=== PATIENT | male | born 1935 | race Caucasian/White ===

== ENCOUNTER 2016-12-23 15:50 | Inpatient (IN) ==
--- NOTE | 2016-12-23 16:23 | PROVIDER DOCUMENTATION ---
HPI-General Adult - General Chief Complaint: General Adult Stated Complaint: BLOOD CLOT Time Seen by Provider: 12/23/16 16:20 Source: patient Allergies/Adverse Reactions: Patient Allergies Allergy/AdvReac Type Severity Reaction Status Date / Time meperidine HCl * Allergy Severe Unknown Verified 12/23/16 16:15 [From Demerol] Sulfa (Sulfonamide Allergy Severe HEADACHE Verified 12/23/16 16:15 Antibiotics) venom-honey bee Allergy Severe SWELLING Verified 12/23/16 16:15 [bee venom (honey bee)] Home Medications: Home Medication List Medication Instructions Recorded Confirmed Last Taken Type Acetaminophen/Dp-Hydramine 2 each PO HS 06/07/12 12/24/16 06/10/12 21:00 History [Excedrin Pm 500-38 mg Caplet] Glipizide 5 mg PO DAILY 06/07/12 12/24/16 06/10/12 08:00 History Losartan/Hydrochlorothiazide 1 each PO DAILY 06/07/12 12/24/16 06/11/12 07:00 History [Losartan-Hctz 100-25 mg Tab] Psyllium Seed/Aspartame [Metamucil 1 tsp PO DAILY 06/07/12 12/23/16 12/22/16 History Powder] Amlodipine Besylate 10 mg PO DAILY 12/24/16 12/24/16 Unknown History Doxycycline Hyclate 100 mg PO BID 12/24/16 12/24/16 Unknown History Rivaroxaban [Xarelto] 20 mg PO WSUPPER #90 tablet 12/25/16 Unknown Rx - History of Present Illness -Gen Adult Nature of Presenting Problems: patient is a 81 yo M that presents to the ER for evaluation for possible PE. patient just had u/s done of right leg and found to have extensive DVT. sent him for PE study then admission. Patient was on recent long trip. He started to have shortness of breath and leg cramping. Seen [facility] at PCP office, he then was treated for possible URI, which given antibiotics and steroids that improved the shortness of breath some. Location of Pain/Injury: reports: lower extremity (right) Pain Radiation: reports: no radiation Quality of Pain: reports: dull Severity: reports: moderate Onset/Duration: reports: gradual, 3 days ago, 4 days ago Timing: reports: still present, constant Context/Activities at Onset: reports: other (long travel) Modifying Factors: improves with: nothing Associated Symptoms: reports: shortness of breath. denies: back/neck pain, chest pain, fever/chills, genitourinary problems, sinus congestion/drainage, nausea, vomiting Similar Symptoms Previously?: Yes Recently seen or treated by another doctor?: Yes Review of Systems - Adult - REVIEW OF SYSTEMS - ADULT Constitutional: denies: chills, fever Eyes: reports: no symptoms reported Ears, Nose, Mouth & Throat: denies: ear pain, sinus problem, throat pain, throat swelling Cardiovascular: denies: chest pain, palpitations Respiratory: reports: cough, shortness of breath Gastrointestinal: reports: no symptoms reported Genitourinary: reports: no symptoms reported Musculoskeletal: reports: bone pain. denies: joint pain Integumentary: reports: no symptoms reported Neurological: reports: no symptoms reported Psychiatric: reports: no symptoms reported Endocrine: reports: no symptoms reported Hematologic/Lymphatic: reports: no symptoms reported Allergic/Immunologic: reports: no symptoms reported All Other Systems: Reviewed and Negative Past History - Adult - PAST MEDICAL HISTORY-ADULT Review of Records: reports: Old Records Reviewed, Nursing Assessment Review, Medications Reviewed Cardiovascular: reports: HTN Gastrointestinal: reports: GERD Genitourinary: reports: cancer (bladder), other - PRIOR SURGERIES/PROCEDURES Surgical/Procedure History: reports: reviewed, not pertinent - IMMUNIZATION STATUS Childhood Immunizations: See Nurse Assessment Flu Vaccine: See Nurse Assessment - FAMILY HISTORY Family History: reviewed, not pertinent - SOCIAL HISTORY Smoking: non-smoker Alcohol Use Frequency: occasionally Living Situation: family Physical Exam-General - PHYSICAL EXAM-ADULT Initial Vital Signs Reviewed: Yes - CONSTITUTIONAL General Appearance: alert, no apparent distress - EYES Eyes: PERRL/EOMI, pink conjunctivae - HEAD, EARS, NOSE, MOUTH & THROAT HENMT: normocephalic/atraumatic, moist mucous membranes, normal ENT inspection - NECK Neck: full range of motion, normal inspection - RESPIRATORY Respiratory: lungs clear, normal breath sounds, no respiratory distress, no accessory muscle use - CARDIOVASCULAR Cardiovascular: regular rate, rhythm, no edema, no murmur - GASTROINTESTINAL (ABDOMEN) Abdominal Exam: normal bowel sounds, non tender, soft, no organomegaly, no pulsatile mass - MUSCULOSKELETAL Back Exam: no CVA tenderness, no vertebral tenderness Extremity: normal range of motion, normal capillary refill, pelvis stable, calf tenderness (right) - SKIN Integumentary: normal color, normal turgor, warm/dry - NEUROLOGIC Neurologic: estate and trust tax principal II-XII nml as tested, no motor/sensory deficits - PSYCHIATRIC Psych/Mental Status: normal mood/affect, normal thought content, normal thought process, oriented x 3 Progress - PLAN OF CARE/RESULTS Progress/Plan/Lab Results: Vital Signs - 8 hr 12/23/16 16:07 Temperature 96 F L Pulse Rate 99 H Respiratory Rate 19 Blood Pressure 177/081 O2 Sat by Pulse Oximetry 95 Orders Category Date Time Status CTA [CT ANGIOGRM/PULMONARY ARTERIES] [CT] Stat Exams 12/23/16 16:18 Ordered CBC WITH ELECTRONIC DIFF [HEME] Stat Lab 12/23/16 16:19 Ordered COMPREHENSIVE METABOLIC PANEL [CHEM] Stat Lab 12/23/16 16:19 Ordered Result Diagrams: 12/24/16 05:50 12/24/16 05:50 - CT/MRI 1 CT Study: Angiogram, Thorax CT Results: bilateral pulmonary emboli, emboli in right main pulm artery & terrie. PE's - CONSULTS/PCP/HOSPITALIST Notification #1 *Consult/PCP/Hospitalist*: Dr. Grullon, hospitalist Time Discussed: 18:15 Reason/Comments: informed of abnormal chest CTA which shows bilateral PE Consult Disposition: Admit - CHANGE OF SHIFT REPORT (ED Provider) Report Given and Care Transferred to:: Time of Transfer: 18:00 Items Pending: CT/MRI Results Departure - Departure Date of Disposition Decision: 12/23/16 Time of Disposition Decision: 17:00 DIAGNOSIS: Pulmonary emboli Disposition: ADMITTED INPATIENT 09 Certified Medical Emergency: Emergent Condition: Stable - Critical Care Note This patient required my direct & personal management of CC.: No Attestation - Physician/ ALYSSA Attestation The physician spent face to face time with patient:: Yes Advanced Practice Provider documentation review:: Supervising physician onsite and consulted in the evaluation and care of this patient. The physician did have a face to face encounter with the patient.
[2016-12-23 16:45] LABS: MANUAL DIFF NEEDED? NO
[2016-12-23 16:51] LABS: BASO% 0.2 % (0.0-0.8); EOS# 0.04 X1000 (0.0-0.7); EOS% 0.4 % (0.0-10.0); HEMOGLOBIN 16.8 g/dL (14.0-18.0); IMM GRAN# 0.06 X1000 (0.0-0.04); IMM GRAN% 0.5 % (0.0-0.5); LYMPH# 1.16 X1000 (1.2-3.4); LYMPH% 10.5 % (20.5-51.1); MCH 30.9 PG (27-31); MCHC 35.7 g/dL (33-37); MCV 86.6 FL (81-99); MONO# 0.97 X1000 (0.11-0.59); MONO% 8.8 % (1.7-9.3); MPV 9.6 FL (7.4-10.4); NEUT% 79.6 % (42.2-75.2); PLT 191 X1000 (130-400); RBC 5.43 XMIL (4.7-6.1)
[2016-12-23 17:13] LABS: AGAP 15; ALBUMIN 4.4 g/dL (3.5-5.0); ALKALINE PHOSPHATASE 56 U/L (32-122); BUN 21 mg/dL (8-22); CALCIUM 9.4 mg/dL (8.8-10.2); CHLORIDE 97 mmol/L (98-107); COSMO 282; GOT 18 U/L (10-34); GPT 25 U/L (10-44); POTASSIUM 3.6 mmol/L (3.5-5.1); SODIUM 136 mmol/L (136-145); TCO2 24 mmol/L (25-35); TOTAL PROTEIN 7.8 g/dL (6.3-8.3)
--- NOTE | 2016-12-23 18:17 | Diag Imaging Result Doc PS360 ---
CT ANGIOGRM/PULMONARY ARTERIES - 12/23/2016 INDICATION: Chest pain TECHNIQUE: Axial CT images were obtained after administering intravenous contrast. Coronal MIP images were generated. A CT dose reduction protocol was used. COMPARISON: None FINDINGS: There are several acute pulmonary emboli in the right main pulmonary artery and all the lobar arteries on the right. There are a couple of segmental pulmonary emboli in the left upper and lower lobes as well. Otherwise the lungs are clear and the heart size is normal. Bony structures are intact. IMPRESSION: Several acute bilateral pulmonary emboli. A report was immediately called to the emergency room. Electronically signed by Jose Angel Castro 12/23/2016 6:14 PM
[2016-12-23] MEDS ORDERED: LOVENOX 1 MG/KG SUBQ ONE (18:20)
[2016-12-23] MEDS ORDERED: LOVENOX SUBQ SCH (18:30)
[2016-12-23] MEDS ORDERED: LOVENOX ONE ×2 (18:30→18:31)
[2016-12-23] MEDS: LOVENOX SUBQ SCH (19:53)
[2016-12-23] MEDS ORDERED: BENADRYL PO ONE (23:34)
[2016-12-23] MEDS ORDERED: TYLENOL PO ONE (23:35)
[2016-12-24] MEDS: LOVENOX SUBQ SCH ×2 (05:59→18:19)
[2016-12-24 06:22] LABS: HEMATOCRIT 44.1 % (42.0-52.0); HEMOGLOBIN 15.4 g/dL (14.0-18.0); MCH 30.9 PG (27-31); MCHC 34.9 g/dL (33-37); MCV 88.6 FL (81-99); MPV 9.2 FL (7.4-10.4); RBC 4.98 XMIL (4.7-6.1)
[2016-12-24 06:35] LABS: INR 0.91 (0.86-1.15)
[2016-12-24 06:44] LABS: AGAP 9; ALBUMIN 3.9 g/dL (3.5-5.0); ALKALINE PHOSPHATASE 48 U/L (32-122); BUN 20 mg/dL (8-22); CALCIUM 9.1 mg/dL (8.8-10.2); CHLORIDE 100 mmol/L (98-107); COSMO 285; GOT 16 U/L (10-34); GPT 22 U/L (10-44); MAGNESIUM 1.7 mg/dL (1.5-2.7); POTASSIUM 3.8 mmol/L (3.5-5.1); SODIUM 139 mmol/L (136-145); TCO2 31 mmol/L (25-35); TOTAL PROTEIN 6.7 g/dL (6.3-8.3)
[2016-12-24] MEDS ORDERED: ZOFRAN IV PRN (09:10)
[2016-12-24] MEDS ORDERED: TYLENOL PO PRN (09:10)
[2016-12-24] MEDS ORDERED: RESTORIL PO PRN (10:19)
[2016-12-24] MEDS: GLUCOTROL PO SCH (11:11)
[2016-12-24] MEDS: NORVASC PO SCH (11:11)
[2016-12-24] MEDS: HYDROCHLOROTHIAZIDE PO SCH (11:11)
[2016-12-24] MEDS: COZAAR PO SCH (11:11)
[2016-12-24] MEDS: DOXYCYCLINE PO SCH ×2 (11:11→21:56)
[2016-12-24] MEDS: METAMUCIL POWDER PACKET PO SCH (11:12)
[2016-12-24] MEDS: FISH OIL CONCENTRATE PO SCH (11:12)
--- NOTE | 2016-12-24 15:05 | PROGRESS NOTE ---
DATE: 12/24/2016 SUBJECTIVE: The patient notes that he is feeling better. He is having much less shortness of breath. Still occasional cough. Did not sleep well. Still tired and fatigued and weak when he attempts to ambulate. Denies any chest pain, palpitations. Denies any fevers or chills. OBJECTIVE: Vital Signs: Reviewed. He is afebrile. Blood pressure 140/80, respiratory 22. General: Patient is awake, alert. He is in no respiratory distress. Currently, he is pleasant to talk with. Neck: Supple. Cardiovascular: Regular rate. Chest: Relatively clear. Abdomen: Soft. Extremities: Moves all extremities. Neurologic: No focal changes. Skin: Warm and dry. No rashes. Positive edema in bilateral lower extremities. ASSESSMENT: 1. Deep venous thrombosis, extensive. 2. Bilateral pulmonary emboli. 3. Hypertension. 4. Obesity. 5. Hypoxemia secondary to pulmonary emboli. 6. Dyspnea on exertion secondary to pulmonary emboli. 7. Insomnia. PLAN: We will continue patient in the hospital [facility] on Lovenox. Hopefully, we can discharge in the a.m. on Xarelto if his insurance makes this affordable. We will continue to follow. Further orders as needed. We will continue his home medications. cc: Hilario Grullon MD
[2016-12-24] MEDS ORDERED: TYLENOL PO SCH (21:00)
[2016-12-24] MEDS ORDERED: BENADRYL PO SCH (21:00)
[2016-12-25] MEDS: LOVENOX SUBQ SCH (06:25)
[2016-12-25 07:21] VITALS: BP 178/65
[2016-12-25] MEDS: METAMUCIL POWDER PACKET PO SCH (09:06)
[2016-12-25] MEDS: FISH OIL CONCENTRATE PO SCH (09:07)
[2016-12-25] MEDS: GLUCOTROL PO SCH (09:07)
[2016-12-25] MEDS: HYDROCHLOROTHIAZIDE PO SCH (09:07)
[2016-12-25] MEDS: COZAAR PO SCH (09:07)
[2016-12-25] MEDS: NORVASC PO SCH (09:07)
[2016-12-25] MEDS: DOXYCYCLINE PO SCH (09:07)
--- NOTE | 2016-12-25 18:20 | DISCHARGE SUMMARY ---
ADMISSION DATE: 12/23/2016 DISCHARGE DATE: 12/25/2016 DIAGNOSES: 1. Deep vein thrombosis, extensive. 2. Bilateral pulmonary emboli. 3. Hypertension. 4. Obesity. 5. Hypoxemia, secondary to pulmonary emboli. 6. Dyspnea on exertion, secondary to pulmonary emboli. DIAGNOSTICS: On 12/23/2016, pulmonary arteriogram revealed several acute bilateral pulmonary emboli in the right main pulmonary artery and all of the lobar arteries on the right. There are a couple of segmental pulmonary emboli on the left upper and lower lobes as well. HOSPITAL COURSE: Mr. Peñaloza presented to the emergency room after having a bilateral lower extremity Doppler that showed extensive bilateral DVT. CTA was performed, which revealed extensive bilateral pulmonary emboli, as stated above. He was given Lovenox 1 mg/kg sublingual b.i.d. initially, and he is being transitioned over to Xarelto. DISCHARGE MEDICATIONS: Amlodipine 10 mg daily, Excedrin-PM 2 at bedtime, losartan/hydrochlorothiazide 100/25 daily, glipizide 5 daily, Metamucil daily, and Xarelto 15 mg b.i.d. for 21 days and then 20 mg with supper, to be started after he completes the 15 mg. DISCHARGE PHYSICAL EXAMINATION: Cardiovascular: Regular rate and rhythm. S1 and S2 appreciated. Pulmonary: Breath sounds are clear, with no increased work of breathing noted. Gastrointestinal: Abdomen is soft, nontender, nondistended. Bowel sounds in all 4 quadrants. Extremities: No clubbing, cyanosis, or edema. Calves are nontender. Pulses are palpable x4. FOLLOWUP: He needs to follow up with Dr. Grullon as instructed. DISPOSITION: He is being discharged home in stable condition with family members. TIME SPENT: This is a greater than 30-minute discharge. Dictated by GRIFFIN Hollingsworth for Hilario Grullon MD cc: GRIFFIN Hollingsworth MD
--- NOTE | 2016-12-25 20:13 | HISTORY AND PHYSICAL ---
CHIEF COMPLAINT: Shortness of breath his. HISTORY OF PRESENT ILLNESS: The patient is an 81-year-old male who actually presented to the office with increased cough, congestion, and shortness of breath. Denies any chest pain or palpitations. At that point, denied any change in the swelling in his lower extremities. He was given antibiotics and sent home. He was called in 2 days and was still having symptoms and presented back to the office. At that time he was having more dyspnea on exertion. His labs were drawn and his D-dimer was elevated. An ultrasound of his lower extremities was obtained which demonstrated an extensive DVT and therefore he was asked to go to the hospital. ALLERGIES: Demerol, sulfa causing severe headache, honey bees causing swelling. MEDICATIONS: Lipitor 20, Excedrin p.r.n., Tenormin 50, glipizide 5, losartan HCT 100/25, omega-3 fatty acids, omeprazole. REVIEW OF SYSTEMS: As noted above. Denies any chest pain, palpitations. Denies any fevers or chills. Does state that he has shortness of breath, some coughing with exertion. Denies any PND. Does have swelling in his lower extremities which he notes has slightly worsened. He denies any GI or issues otherwise. PAST MEDICAL HISTORY: Hypertension, obesity, chronic reflux, history of smoking but no longer smokes, has not for several years. FAMILY HISTORY: Noncontributory. No family history of blood clots. SOCIAL HISTORY: He is . He does not smoke or drink. PHYSICAL EXAMINATION: VITAL SIGNS: Reviewed. Temperature 96 degrees, pulse 99, respiratory 19, BP 177/81, saturation 95% on room air. GENERAL: Patient is awake, alert, oriented. He is very pleasant to talk with. NECK: Supple. CV: Regular rate. CHEST: Relatively clear. ABDOMEN: Soft. EXTREMITIES: Moves all extremities. NEUROLOGIC: No focal neurological changes. SKIN: Warm and dry. No rashes. LABORATORIES: CBC with a WBC of 11, otherwise normal. CMP essentially normal with a glucose of 227. CT of the chest demonstrates bilateral pulmonary emboli with an emboli in the right main pulmonary artery as well. ASSESSMENT: 1. Bilateral pulmonary emboli. 2. Lower extremity deep vein thrombosis. 3. Hypertension. 4. Obesity. 5. Chronic reflux. PLAN: We will admit patient to the hospital. Place him on Lovenox. Keep him bedridden for the next 24 hours and then allow to ambulate. At that point, hopefully can transition over to Coumadin or to Xarelto. Further orders as needed. cc: Hilario Grullon MD
--- NOTE | 2016-12-25 21:01 | DISCHARGE SUMMARY ---
ADMISSION DATE: 12/23/2016 DISCHARGE DATE: 12/25/2016 DISCHARGE DIAGNOSES: 1. Deep vein thrombosis, extensive. 2. Bilateral pulmonary emboli. 3. Shortness of breath resolved. 4. Hypertension, stable. 5. Obesity. 6. Others. CONSULTATIONS: None. PROCEDURE: None. HOSPITAL COURSE: The patient is an 81-year-old male who was admitted as noted the HPI. Treated in usual fashion. Placed on Lovenox, thankfully had an uneventful hospital course. He was transitioned over to Xarelto as his notes that it is affordable. DISPOSITION: Patient is awake, alert, he is in no respiratory distress. He will be discharged home. He will follow up in the office in 1-2 weeks. He will continue Xarelto 15 mg b.i.d. and for 21 days. His understands to go by the office upon leaving the hospital pick these samples up. He will then transition to 20 mg once a day. TIME SPENT: 35 minutes was spent in total care. cc: Hilario Grullon MD
== END 2016-12-25 12:55 | disposition home or self-care (01) ==
LOC: P.ED 15:50 → P.MEDSURG 18:27
PROVIDERS: ADMIT Family Medicine; ATTEND Family Medicine